=== PATIENT | male | born 1980 | race Caucasian/White ===

== ENCOUNTER 2017-08-06 10:04 | Emergency (ER) | payer OTHER ==
[2017-08-06 10:10] VITALS: BP 145/86; PULSE 89; TEMP 97.4; BMI 35.4
--- NOTE | 2017-08-06 10:54 | PDOC ---
History of Present Illness - General Chief Complaint: Injury Stated Complaint: LT ANKLE INJURY Time Seen by Provider: 08/06/17 10:17 History Source: Patient Exam Limitations: No Limitations - History of Present Illness Initial Comments: 08/06/17 10:51 CHIEF COMPLAINT: Left ankle inversion injury HISTORY OF PRESENT ILLNESS: Patient is a 37-year-old male denies any significant medical history reports while at work sustained an inversion injury to left ankle. Patient reports it feels as if the bone 1 ounce came back in again. Unable To bear weight on left ankle. Occurred: reports: this morning Severity: Yes: moderate Lower Extremity Pain Location: left: ankle Lower Ext. Injury Location - Specific Injury Location Ankle: left soft tissue tenderness, left limited range of motion, left pain Extremity Pain Location - Extremity Pain Location Extremity Pain Locations: left: ankle Past History - Past Medical History Allergies/Adverse Reactions: Allergies Allergy/AdvReac Type Severity Reaction Status Date / Time No Known Allergies Allergy Verified 08/06/17 10:05 Home Medications: Ambulatory Orders Lisdexamfetamine Dimesylate [Vyvanse] 40 mg PO ASDIR 08/06/17 Naproxen [Naprosyn] 500 mg PO BID #20 tablet 08/06/17 COPD: No DVT: No - Immunization History Immunization Up to Date: Yes - Suicide/Smoking/Psychosocial Hx Smoking History: Never smoked Have you smoked in the past 12 months: No Information on smoking cessation initiated: No Hx Alcohol Use: No Drug/Substance Use Hx: No Substance Use Type: None Review of Systems - Review of Systems Constitutional: No: Symptoms Reported Respiratory: No: Symptoms reported Cardiac (ROS): No: Symptoms Reported Musculoskeletal: Yes: Joint Pain. No: Joint Swelling, Muscle Pain, Muscle Weakness, Joint Stiffness Integumentary: No: Bruising, Erythema Neurological: No: Paresthesia, Tingling, Tremors All Other Systems: Reviewed and Negative *Physical Exam - Vital Signs Last Vital Signs Temp Pulse Resp BP Pulse Ox 97.4 F L 89 15 145/86 100 08/06/17 10:05 08/06/17 10:05 08/06/17 10:05 08/06/17 10:05 08/06/17 10:05 - Physical Exam General Appearance: Yes: Appropriately Dressed. No: Apparent Distress Respiratory/Chest: positive: Lungs Clear, Normal Breath Sounds Cardiovascular: positive: Regular Rhythm, Regular Rate Vascular Pulses: Dorsalis-Pedis (R): 4+, Doralis-Pedis (L): 4+ Musculoskeletal: positive: Decreased Range of Motion Extremity: positive: Normal Capillary Refill, Normal Inspection (normal Physical inspection, there is no edema or erythema, no bruising. Tenderness to left lateral ankle), Tender. negative: Normal Range of Motion, Swelling, Erythema, Inflammation Integumentary: positive: Normal Color, Dry. negative: Erythema, Swelling, Ecchymosis, Bruising Neurologic: positive: Alert, Normal Mood/Affect, Normal Response, Motor Strength 09/27 ED Treatment Course - RADIOLOGY Radiology Studies Ordered: Category Date Time Status ANKLE & FOOT-LEFT* [RAD] Stat Radiology 08/06/17 10:17 Taken Medical Decision Making - Medical Decision Making 08/06/17 10:56 A/P: Patient here for evaluation of injury to left ankle, on physical examination there is no visible injury however pain to lateral ankle. X-ray demonstrates no acute fracture dislocation. Sagar wrap and Aircast placed on, patient discharged on anti-inflammatories to follow-up with orthopedics in one week if pain persists. *DC/Admit/Observation/Transfer Diagnosis at time of Disposition: Ankle injury Qualifiers: Encounter type: initial encounter Laterality: left Qualified Code(s): S99.912A - Unspecified injury of left ankle, initial encounter - Discharge Dispostion Disposition: HOME Condition at time of disposition: Stable Admit: No - Prescriptions Prescriptions: Naproxen [Naprosyn] 500 mg PO BID #20 tablet - Referrals Referrals: Viral Edward MD [Staff Physician] - - Patient Instructions Additional Instructions: 1. Please return to the emergency department with any redness, swelling, increased pain, or any other concerns. 2. Keep splint on for stability. 3. Please follow up in the office of Dr. Edward within a week if pain persists. 4. No weightbearing 5. Ice and elevate when at rest. 6. Naprosyn for pain - Post Discharge Activity Forms/Work/School Notes: Back to Work
== END 2017-08-06 11:04 | disposition home or self-care (01) ==
LOC: JERFT 10:04
PROC: 2W3RX1Z Immobilization of Left Lower Leg using Splint (ICD-10-PCS; principal; 2017-08-06)
DX: S99.812A Other specified injuries of left ankle, initial encounter (principal); X50.1XXA Overexertion from prolonged static or awkward postures, initial encounter; Y93.89 Activity, other specified; Y92.89 Other specified places as the place of occurrence of the external cause; Y99.0 Civilian activity done for income or pay
CPT/HCPCS: 73610-TC-LT-FY; 73630-TC-LT; 99282-25

== ENCOUNTER 2022-01-14 07:10 | Emergency (ER) | payer OTHER, BC ==
[2022-01-14 07:23] VITALS: BP 149/88; PULSE 92; RESP 18; TEMP 98.4; BMI 35.4
== END 2022-01-14 08:41 | disposition home or self-care (01) ==
LOC: JER 07:10
DX: S99.911A Unspecified injury of right ankle, initial encounter (principal)
CPT/HCPCS: 99283-25